=== PATIENT | female | born 1995 | race Hispanic/Latino ===

== ENCOUNTER 2023-07-06 03:54 | Inpatient (IN) | payer OTHER ==
[2023-07-06 04:51] VITALS: BMI 22.3
[2023-07-06] MEDS ORDERED: Carboprost 250 MCG/ML AMP IM PRN (07:04)
[2023-07-06] MEDS ORDERED: Ibuprofen 800 MG TAB PO PRN (07:04)
[2023-07-06] MEDS ORDERED: Promethazine HCl 25 MG/ML VIAL IM PRN ×3 (07:04→15:21)
[2023-07-06] MEDS ORDERED: HYDROcodone/Acetaminophen 5/325 mg Tablet PO PRN (07:04)
[2023-07-06] MEDS ORDERED: Lidocaine 1% (PF) 30 ML VIAL SC PRN (07:04)
[2023-07-06] MEDS ORDERED: Acetaminophen 500 MG TAB PO PRN (07:04)
[2023-07-06] MEDS ORDERED: Ondansetron PF 4 MG/2 ML Vial IVP PRN ×3 (07:04→15:21)
[2023-07-06] MEDS ORDERED: Misoprostol 200 MCG TAB PR PRN (07:04)
[2023-07-06] MEDS ORDERED: Lactated Ringer's 1,000 ML IV SCH (07:04)
[2023-07-06] MEDS ORDERED: hydrALAZINE 20 MG/ML VIAL SLOW IVP PRN ×2 (07:04→15:21)
[2023-07-06] MEDS ORDERED: Tranexamic Acid 1,000 MG/10 ML VIAL IVP PRN (07:04)
[2023-07-06] MEDS ORDERED: fentaNYL 50 mcg/mL 1 mL Vial SLOW IVP PRN (07:04)
[2023-07-06] MEDS ORDERED: Methylergonovine 0.2 MG/ML VIAL IM PRN (07:04)
[2023-07-06] MEDS ORDERED: Diphenoxylate HCl/Atropine Tablet PO PRN (07:04)
[2023-07-06] MEDS ORDERED: Oxytocin 30 units/NS 500 ML 500 ML IV SCH ×3 (07:04)
[2023-07-06 07:12] LABS: Hematocrit 38.4 % (34.9-44.5); Hemoglobin 13.6 g/dL (12.0-15.5); Mean Corpuscular HGB CONC 35.4 g/dL (32.0-36.0); Mean Corpuscular Hemoglobin 29.6 pg (27.0-33.0); Mean Corpuscular Volume 83.7 fl (81.6-98.3); Platelet Count 211 10x3/uL (150-450); RBC Distribution Width 13.3 % (11.5-14.5); Red Blood Cell (RBC) Count 4.59 10x6/uL (3.90-5.03)
[2023-07-06] MEDS ORDERED: fentaNYL/Ropivacaine Epidural 100 ML ONE (07:17)
[2023-07-06] MEDS ORDERED: Bupivacaine 0.25% HCL 30 ML VIAL ONE (08:00)
[2023-07-06 08:03] LABS: HBSAg Index 0.19 S/CO (0-0.99); Hep B Surf Ag - L&D Non-Reactive S/CO (NonReactive)
[2023-07-06] MEDS ORDERED: ePHEDrine Sulfate 50 MG/10 ML VIAL SLOW IVP PRN (08:33)
[2023-07-06] MEDS ORDERED: Acetaminophen 325 MG TAB PO PRN (08:33)
[2023-07-06] MEDS ORDERED: Lactated Ringer's 500 ML IV PRN (08:33)
[2023-07-06] MEDS ORDERED: diphenhydrAMINE 50 MG/ML VIAL IVP PRN (08:33)
[2023-07-06] MEDS ORDERED: Moisturizing Cream (Eucerin) 113 GM JAR TOP PRN (08:33)
[2023-07-06] MEDS ORDERED: Naloxone HCl 0.4 mg/ml Vial IVP PRN ×2 (08:33)
[2023-07-06] MEDS ORDERED: fentaNYL 2 mcg/Ropivacaine 0.2% Epidural 100 ML CADD EPIDURAL SCH (08:45)
[2023-07-06] MEDS ORDERED: Communication Order-Pharmacy FS SCH (08:45)
[2023-07-06 13:29] LABS: Syphilis Antibody INDETERMINATE (Nonreactive)
[2023-07-06] MEDS ORDERED: Preparation H Ointment 28 GM TUBE PR PRN (15:21)
[2023-07-06] MEDS ORDERED: diphenhydrAMINE 25 MG CAP PO PRN (15:21)
[2023-07-06] MEDS ORDERED: Benzocaine-Menthol 82.5 ML CAN TOP PRN (15:21)
[2023-07-06] MEDS ORDERED: Bisacodyl 10 MG SUPP PR PRN (15:21)
[2023-07-06] MEDS ORDERED: Boostrix 0.5 ML (Tdap) VIAL (>/=7 yrs of age) IM ONE (15:21)
[2023-07-06] MEDS ORDERED: Milk Of Magnesia 30 ML UDCUP PO PRN (15:21)
[2023-07-06] MEDS ORDERED: Lanolin Ointment 7 GM TUBE TOP PRN (15:21)
[2023-07-06] MEDS: Ferrous Sulfate 325 MG TAB PO SCH (16:15)
[2023-07-06] MEDS: HYDROcodone/Acetaminophen 5/325 mg Tablet PO PRN ×2 (16:21→19:56)
[2023-07-06] MEDS: Docusate 100 MG CAP PO SCH (19:55)
[2023-07-06] MEDS: Ibuprofen 800 MG TAB PO SCH (21:45)
[2023-07-07] MEDS: HYDROcodone/Acetaminophen 5/325 mg Tablet PO PRN ×2 (02:55→07:57)
[2023-07-07] MEDS: Ibuprofen 800 MG TAB PO SCH ×2 (05:41→13:31)
[2023-07-07] MEDS: Docusate 100 MG CAP PO SCH (07:57)
[2023-07-07] MEDS ORDERED: Prenatal Vitamin 1 TAB PO SCH (09:00)
[2023-07-07] MEDS: Ferrous Sulfate 325 MG TAB PO SCH (09:47)
[2023-07-07 11:39] VITALS: BP 103/60; TEMP 98.3
== END 2023-07-07 15:30 | disposition home or self-care (01) | DRG 807 ==
LOC: CSHLD/OP 03:54 → CSHLD 07:06 → CSHPED 14:30
PROVIDERS: ADMIT Family Medicine; ATTEND Family Medicine
PROC: 10E0XZZ Delivery of Products of Conception, External Approach (ICD-10-PCS; principal; 2023-07-06)
PROC: 0UQMXZZ Repair Vulva, External Approach (ICD-10-PCS; 2023-07-06)
DX: O70.0 First degree perineal laceration during delivery (principal); Z37.0 Single live birth; Z3A.38 38 weeks gestation of pregnancy
CPT/HCPCS: 85027; 86593; 86780; 86850; 86900; 86901; 87340; J0665; J2590